=== PATIENT | female | born 1935 | race Caucasian/White ===

== ENCOUNTER 2020-04-30 11:48 | Emergency (ER) | payer MEDICARE ==
[~2020-04-30] VITALS: Ht 175.3 cm; Wt 57.2 kg
[~2020-04-30 11:48] MED LIST: ALPHA LIPOIC A200 M1; ASPIRIN; BILBERRY100 MG; COREG12.5 MG; OCUVITE TABLET1 EAC1; zeaxanthin
[2020-04-30] MEDS ORDERED: TETANUS/DIPHTHERIA TOX ADULT 0.5 ML SYR IM ONE (12:15)
== END 2020-04-30 13:57 | disposition home or self-care (01) ==
LOC: ER 12:10
DX: S91.312A Laceration without foreign body, left foot, initial encounter (principal); W25.XXXA Contact with sharp glass, initial encounter; Y92.000 Kitchen of unspecified non-institutional (private) residence as the place of occurrence of the external cause; E78.5 Hyperlipidemia, unspecified; I48.91 Unspecified atrial fibrillation; Z85.3 Personal history of malignant neoplasm of breast; Z98.0 Intestinal bypass and anastomosis status
CPT/HCPCS: 90471; 90714; 99284

== ENCOUNTER 2020-11-17 17:19 | Emergency (ER) | payer MEDICARE ==
[~2020-11-17] VITALS: Ht 175.3 cm; Wt 57.2 kg
[2020-11-17] MEDS ORDERED: OFLOXACIN5 ML OT (18:31)
== END 2020-11-17 18:37 | disposition home or self-care (01) ==
LOC: ER 18:34
DX: S01.311A Laceration without foreign body of right ear, initial encounter (principal); W22.8XXA Striking against or struck by other objects, initial encounter; Y92.008 Other place in unspecified non-institutional (private) residence as the place of occurrence of the external cause; I48.91 Unspecified atrial fibrillation; E78.5 Hyperlipidemia, unspecified; H35.30 Unspecified macular degeneration; Z85.3 Personal history of malignant neoplasm of breast; Z98.0 Intestinal bypass and anastomosis status
CPT/HCPCS: 99282